=== PATIENT | female | born 1965 | race American Indian/Alaskan Native ===

== ENCOUNTER 2018-10-28 19:16 | Emergency (ER) | payer MEDICARE ==
[2018-10-28 19:27] VITALS: BP 166/92
--- NOTE | 2018-10-28 19:32 | Event Note ---
ED Screening Note Date of service: 10/28/18 Time: 19:24 ED Screening Note: 53 y o male presents to ED cc of felling a pulling type pain to her right calf along with tingling pain to anterior leg states 10/10 no swelling, mild tenderness to palpation This initial assessment/diagnostic orders/clinical plan/treatment(s) is/are subject to change based on patients health status, clinical progression and re- assessment by fellow clinical providers in the ED. Further treatment and workup at subsequent clinical providers discretion. Patient/guardian urged not to elope from the ED as their condition may be serious if not clinically assessed and managed. Initial orders include: d-dimer US?
--- NOTE | 2018-10-28 20:19 | Emergency Department Report ---
ED Lower Extremity HPI - General Chief Complaint: Extremity Injury, Lower Stated Complaint: RIGHT KNEE NUMBNESS Time Seen by Provider: 10/28/18 19:24 Source: patient Mode of arrival: Ambulatory Limitations: Physical Limitation - History of Present Illness Initial Comments: 53yo F stated that her SOB and knee pain began 3 days ago and has progressed after a long bus ride. She stated that her knee pain now affects her walking and sleep. Pt further stated that she took otc NSAID and applied an ice pack which gave mild relief. Complaint: knee injury (R) -: days(s) (3) Type of Injury: other (none) Place: other (began while riding a bus on a long trip) Severity scale (0 -10): 10 Improves With: NSAID, cold therapy Worsens With: weight bearing, movement Treatments Prior to Arrival: cold therapy, NSAIDS - Related Data Allergies Allergy/AdvReac Type Severity Reaction Status Date / Time No Known Allergies Allergy Verified 10/28/18 19:19 ED Review of Systems ROS: Stated complaint: RIGHT KNEE NUMBNESS Other details as noted in HPI Comment: All other systems reviewed and negative Constitutional: denies: chills, fever Eyes: denies: eye pain, eye discharge, vision change ENT: denies: ear pain, throat pain Respiratory: denies: cough, shortness of breath, wheezing Cardiovascular: denies: chest pain, palpitations Endocrine: no symptoms reported Gastrointestinal: denies: abdominal pain, nausea, diarrhea Genitourinary: denies: urgency, dysuria, discharge Musculoskeletal: denies: back pain, joint swelling, arthralgia Skin: denies: rash, lesions Neurological: denies: headache, weakness, paresthesias Psychiatric: denies: anxiety, depression Hematological/Lymphatic: denies: easy bleeding, easy bruising ED Past Medical Hx - Past Medical History Previous Medical History?: Yes Additional medical history: lupus - Surgical History Hx Cholecystectomy: Yes (gallstones) Additional Surgical History: right forearm, bilateral knee-orthoscopic,LS-2,3,4 and 5 - Social History Smoking Status: Current Some Day Smoker Substance Use Type: Alcohol ED Physical Exam - General Limitations: Physical Limitation General appearance: alert, in no apparent distress - Head Head exam: Present: atraumatic, normocephalic - Eye Eye exam: Present: normal appearance - ENT ENT exam: Present: mucous membranes moist - Neck Neck exam: Present: normal inspection - Respiratory Respiratory exam: Present: normal lung sounds bilaterally. Absent: respiratory distress - Cardiovascular Cardiovascular Exam: Present: regular rate, normal rhythm. Absent: systolic murmur, diastolic murmur, rubs, gallop - GI/Abdominal GI/Abdominal exam: Present: soft, normal bowel sounds - Expanded Lower Extremity Exam Right Knee exam: Present: tenderness (R medial and posterior knee pain), pain/laxity with valgus Gait: Positive: antalgic - Back Exam Back exam: Present: normal inspection - Neurological Exam Neurological exam: Present: alert, oriented X3 - Psychiatric Psychiatric exam: Present: normal affect, normal mood ED Course Vital Signs 10/28/18 10/29/18 19:23 02:10 Temperature 97.6 F Pulse Rate 71 62 Respiratory 18 16 Rate Blood Pressure 166/92 O2 Sat by Pulse 100 98 Oximetry ED Lower Extremity MDM - Medical Decision Making 53yo F stated that her SOB and knee pain began 3 days ago and has progressed after a long bus ride. She stated that her knee pain now affects her walking and sleep. Pt further stated that she took otc NSAID and applied an ice pack which gave mild relief. A D-dimer was order that showed a positive result. No acute abnormality of knee was seen on the R knee x-ray. A CTA was ordered and the results are listed below. The patient was explained that a Doppler study was needed for her R leg to rule out a DVT; pt stated that she would like to return tomorrow for imaging studies. She has been scheduled with radiology for an outpatient Doppler study in the AM on 10/29/2018. Ordering Physician: CONSTANCE GUILLEN PA-C Date of Service: 10/28/18 Procedure(s): CT angio chest Accession Number(s): [id number] cc: CONSTANCE GUILLEN PA-C CT angio chest INDICATION / CLINICAL INFORMATION: Chest pain. TECHNIQUE: Axial CT images were obtained after injection of Omnipaque 350, 100 cc IV contrast using CTA protocol. 3 plane MIP / 3D reconstructions were produced. All CT scans at this location are performed using CT dose reduction for ALARA by means of automated exposure control. COMPARISON: None available. FINDINGS: The lungs contain no mass, infiltrate or pleural fluid. Negative for mediastinal mass or adenopathy. Negative for aneurysm, dissection or pulmonary embolus. 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 Imaging of the upper abdomen is unremarkable. IMPRESSION: 1. Negative for pulmonary embolus or pneumonia. 2. Right-sided aortic arch. Signer Name: Reji Covarrubias MD Signed: 10/29/2018 12:19 AM Workstation Name: [id number] Transcribed By: ES Dictated By: Reji Covarrubias MD Electronically Authenticated By: Reji Covarrubias MD Signed Date/Time: 10/29/18 0019 Critical care attestation.: If time is entered above; I have spent that time in minutes in the direct care of this critically ill patient, excluding procedure time. ED Disposition Clinical Impression: Shortness of breath, Right leg pain Disposition: - TO HOME OR SELFCARE Is pt being admited?: No Does the pt Need Aspirin: No Condition: Stable Instructions: Paresthesia (ED), Dyspnea (ED) Additional Instructions: Pt was informed that if symptoms worsen or new symptoms arise to see ER. Pt was instructed to F/U with Nuc. med in the morning at 8AM for doppler study in radiology dept. [facility] Care Provider[facility] - 3-5 Days Forms: AMA Form, Work/School Release Form(ED) Time of Disposition: 02:01
--- NOTE | 2018-10-28 21:30 | XRay Report ---
RIGHT KNEE 3 VIEWS INDICATION / CLINICAL INFORMATION: rt knee pain COMPARISON: None available. FINDINGS: BONES and JOINT(S): No acute fracture or subluxation. No significant arthritis. An old proximal tibia l fracture is seen, status post internal fixation. SOFT TISSUES: No significant abnormality. ADDITIONAL FINDINGS: None. IMPRESSION: No acute abnormality of the right knee. Signer Name: Barry Cristina MD Signed: 10/28/2018 9:25 PM Workstation Name: [id number]
--- NOTE | 2018-10-29 00:23 | Cat Scan Report ---
CT angio chest INDICATION / CLINICAL INFORMATION: Chest pain. TECHNIQUE: Axial CT images were obtained after injection of Omnipaque 350, 100 cc IV contrast using CTA protocol . 3 plane MIP / 3D reconstructions were produced. All CT scans at this location are performed using C T dose reduction for ALARA by means of automated exposure control. COMPARISON: None available. FINDINGS: The lungs contain no mass, infiltrate or pleural fluid. Negative for mediastinal mass or adenopathy. Negative for aneurysm, dissection or pulmonary embolus. The aortic arch is right-sided. The left subc lavian artery arises from a diverticulum. Imaging of the upper abdomen is unremarkable. IMPRESSION: 1. Negative for pulmonary embolus or pneumonia. 2. Right-sided aortic arch. Signer Name: Reji Covarrubias MD Signed: 10/29/2018 12:19 AM Workstation Name: [id number]
== END 2018-10-29 02:10 | disposition home or self-care (01) ==
LOC: ED 19:16
DX: R06.02 Shortness of breath (principal); M25.561 Pain in right knee; F17.200 Nicotine dependence, unspecified, uncomplicated; Z90.49 Acquired absence of other specified parts of digestive tract
CPT/HCPCS: 36415; 71275; 73562; 85379; 99284; Q9967

== ENCOUNTER 2018-10-29 14:52 | Outpatient (CLI) | payer MEDICARE ==
--- NOTE | 2018-10-29 16:02 | Vascular Lab Report ---
DUPLEX DOPPLER LOWER EXTREMITY VEINS, RIGHT INDICATION: Right leg pain, swelling and numbness. TECHNIQUE: Duplex doppler imaging was performed through the veins of the right lower extremity using venous comp ression and other maneuvers. COMPARISON: No relevant prior imaging study available. FINDINGS: Common Femoral vein: Negative. Superficial Femoral vein: Negative. Popliteal vein: Negative. Calf veins: Negative. Additional findings: None. IMPRESSION: No sonographic evidence for DVT in the right lower extremity. Signer Name: Barry Cristina MD Signed: 10/29/2018 3:57 PM Workstation Name: [id number]
== END 2018-10-29 14:53 | disposition home or self-care (01) ==
LOC: VAS 14:52
PROVIDERS: ATTEND Physician Assistant Medical
DX: R22.41 Localized swelling, mass and lump, right lower limb (principal)

== ENCOUNTER 2018-10-31 10:01 | Emergency (ER) | payer MEDICARE ==
[2018-10-31] MEDS ORDERED: ULTRAM PO ONE (13:20)
--- NOTE | 2018-10-31 13:29 | Emergency Department Report ---
ED General Adult HPI - General Chief complaint: Laceration/Recheck/Suture Stated complaint: FOLLOW UP WITH RESULTS Time Seen by Provider: 10/31/18 12:18 Source: patient Mode of arrival: Ambulatory Limitations: No Limitations - History of Present Illness Initial comments: Disposition presents to the emergency department with a chief complaint right leg pain. Patient was seen in this ED 2 days ago and had an outpatient Doppler ultrasound of her right leg for concern of DVT as an outpatient and this morning. Patient here for results. -: Sudden Location: lower extremity Radiation: non-radiation Severity scale (0 -10): 6 Quality: stabbing, aching Consistency: constant Improves with: rest Worsens with: movement Associated Symptoms: denies other symptoms Treatments Prior to Arrival: none - Related Data Previous Rx's Medication Instructions Recorded Last Taken Type traMADol [Ultram] 50 mg PO Q6HR PRN #24 tablet 10/31/18 Unknown Rx Allergies Allergy/AdvReac Type Severity Reaction Status Date / Time No Known Allergies Allergy Verified 10/28/18 19:19 ED Review of Systems ROS: Stated complaint: FOLLOW UP WITH RESULTS Other details as noted in HPI Comment: All other systems reviewed and negative Constitutional: denies: chills, fever Eyes: denies: eye pain, eye discharge, vision change ENT: denies: ear pain, throat pain Respiratory: denies: cough, shortness of breath, wheezing Cardiovascular: denies: chest pain, palpitations Endocrine: no symptoms reported Gastrointestinal: denies: abdominal pain, nausea, diarrhea Genitourinary: denies: urgency, dysuria, discharge Musculoskeletal: denies: back pain, joint swelling, arthralgia Skin: denies: rash, lesions Neurological: denies: headache, weakness, paresthesias Psychiatric: denies: anxiety, depression Hematological/Lymphatic: denies: easy bleeding, easy bruising ED Past Medical Hx - Past Medical History Additional medical history: lupus - Surgical History Hx Cholecystectomy: Yes (gallstones) Additional Surgical History: right forearm, bilateral knee-orthoscopic,LS-2,3,4 and 5 - Social History Smoking Status: Never Smoker Substance Use Type: None - Medications Home Medications: Home Medications Medication Instructions Recorded Confirmed Last Taken Type traMADol [Ultram] 50 mg PO Q6HR PRN #24 tablet 10/31/18 Unknown Rx ED Physical Exam - General Limitations: No Limitations General appearance: alert, in no apparent distress - Head Head exam: Present: atraumatic, normocephalic - Eye Eye exam: Present: normal appearance - ENT ENT exam: Present: mucous membranes moist - Neck Neck exam: Present: normal inspection - Respiratory Respiratory exam: Present: normal lung sounds bilaterally. Absent: respiratory distress - Cardiovascular Cardiovascular Exam: Present: regular rate, normal rhythm. Absent: systolic murmur, diastolic murmur, rubs, gallop - GI/Abdominal GI/Abdominal exam: Present: soft, normal bowel sounds - Extremities Exam Extremities exam: Present: normal inspection - Back Exam Back exam: Present: normal inspection - Neurological Exam Neurological exam: Present: alert, oriented X3, CN II-XII intact. Absent: motor sensory deficit - Psychiatric Psychiatric exam: Present: normal affect, normal mood - Skin Skin exam: Present: warm, dry, intact, normal color. Absent: rash ED Course Vital Signs 10/31/18 10:17 Temperature 98.1 F Pulse Rate 81 Respiratory 20 Rate Blood Pressure 124/82 O2 Sat by Pulse 98 Oximetry ED Medical Decision Making - Radiology Data [address] [address] Vascular Lab Report Signed Patient: KEANU GARZA MR#: [id number] : 1965 Acct:[id number] Age/Sex: 53 / F ADM Date: 10/29/18 Loc: [facility] Attending Dr: CONSTANCE GUILLEN Ordering Physician: CONSTANCE GUILLEN PA-C Date of Service: 10/29/18 Procedure(s): VL venous duplex LE RT Accession Number(s): [id number] cc: CONSTANCE GUILLEN PA-C DUPLEX DOPPLER LOWER EXTREMITY VEINS, RIGHT INDICATION: Right leg pain, swelling and numbness. TECHNIQUE: Duplex doppler imaging was performed through the veins of the right lower extremity using venous compression and other maneuvers. COMPARISON: No relevant prior imaging study available. FINDINGS: Common Femoral vein: Negative. Superficial Femoral vein: Negative. Popliteal vein: Negative. Calf veins: Negative. Additional findings: None. IMPRESSION: No sonographic evidence for DVT in the right lower extremity. Signer Name: Barry Cristina MD Signed: 10/29/2018 3:57 PM Workstation Name: [id number] Transcribed By: ZIGGY Dictated By: Barry Cristina MD Electronically Authenticated By: Barry Cristina MD Signed Date/Time: 10/29/181556 DD/ 56 TD/TT: - Medical Decision Making Discussed results with patient Critical care attestation.: If time is entered above; I have spent that time in minutes in the direct care of this critically ill patient, excluding procedure time. ED Disposition Clinical Impression: Leg pain Disposition: - TO HOME OR SELFCARE Is pt being admited?: No Does the pt Need Aspirin: No Condition: Stable Referrals: PRIMARY CARE, [Primary Care Provider] - 3-5 Days [facility] [Provider Group] - 3-5 Days [facility] [Provider Group] - 3-5 Days Time of Disposition: 13:31
[2018-10-31 13:53] VITALS: BP 130/81
== END 2018-10-31 13:52 | disposition home or self-care (01) ==
LOC: ED 10:01
DX: I82.4Z1 Acute embolism and thrombosis of unspecified deep veins of right distal lower extremity (principal); M32.9 Systemic lupus erythematosus, unspecified
CPT/HCPCS: 99282